=== PATIENT | female | born 1975 | race Caucasian/White ===

== ENCOUNTER 2019-01-11 08:38 | Emergency (ER) | payer OTHER ==
[~2019-01-11] VITALS: Ht 160 cm; Wt 70.3 kg
[2019-01-11] MEDS ORDERED: FAMOTIDINE 20 MG TABLET ONE (08:55)
[2019-01-11] MEDS ORDERED: methylPREDNISolone SOD SUCC 125 MG/2 ML VIAL ONE (08:55)
[2019-01-11] MEDS ORDERED: diphenhydrAMINE 50 MG CAPSULE ONE (08:55)
[2019-01-11] MEDS ORDERED: methylPREDNISolone SOD SUCC 125 MG/2 ML VIAL IM ONE (09:00)
[2019-01-11] MEDS ORDERED: diphenhydrAMINE 50 MG CAPSULE PO ONE (09:00)
[2019-01-11] MEDS ORDERED: FAMOTIDINE 20 MG TABLET PO ONE (09:00)
--- NOTE | 2019-01-11 09:04 | NUR ---
PT STARTED TO FEEL NERVOUS, SCARED, HR INCREASED TO 101. MD AT BEDSIDE.
[2019-01-11] MEDS ORDERED: EPINEPHRINE 1 MG/1 ML AMP ONE (09:10)
[2019-01-11] MEDS ORDERED: EPINEPHRINE 1 MG/1 ML AMP SQ ONE (09:15)
--- NOTE | 2019-01-11 10:00 | NUR ---
PT RESTING, SAYS FEELS BETTER,WILL CONTINUE TO MONITOR THE PT. PT DENEIS ANY SOB, DIFFICULTY SWALLOWING OR BREATHING AT THIS TIME.
--- NOTE | 2019-01-11 10:57 | NUR ---
Patient discharged to home in stable conditon. Written and verbal after care instructions given. Patient verbalizes understanding of instructions.PT FEELS BETTER, RASHES IMPROVING. NO SIGN OF RESP DISTRESS. NO DIFICULTY SWALLOWING.
[2019-01-11 10:58] VITALS: BP 101/75
== END 2019-01-11 11:00 | disposition home or self-care (01) ==
LOC: ER 08:38
DX: T63.441A Toxic effect of venom of bees, accidental (unintentional), initial encounter (principal); Z88.2 Allergy status to sulfonamides; Y92.89 Other specified places as the place of occurrence of the external cause
CPT/HCPCS: 96372 ×2; 99283; J0171; J2930; Q0163; A4663